=== PATIENT | male | born 1990 | race African-American/Black ===

== ENCOUNTER 2017-06-01 00:04 | Emergency (ER) | payer SELFPAY ==
[~2017-06-01] VITALS: Ht 172.7 cm; Wt 72.6 kg
[~2017-06-01 00:04] MED LIST: AUGMENTIN 875875 MG PO; CATAFLAM50 MG PO; HYDROCODONE BIT1 T11 PO; NORFLEX100 MG PO; PREDNISONE10 MG PO
[2017-06-01 00:45] LABS: BILIRUBIN 1+ (NEGATIVE); BLOOD TRACE-LYSED (NEGATIVE); CLARITY SL CLOUDY (CLEAR); COLOR YELLOW (YELLOW); GLUCOSE NEGATIVE (NEGATIVE); KETONE NEGATIVE (NEGATIVE); LEUKO ESTERASE NEGATIVE (NEGATIVE); NITRITE NEGATIVE (NEGATIVE); PH 5.5 (5.0-9.0); SPECIFIC GRAVITY >= 1.030 (1.005-1.030)
== END 2017-06-01 01:20 | disposition home or self-care (01) ==
LOC: ED 00:04
PROVIDERS: Physician Assistant
DX: N48.89 Other specified disorders of penis (principal); F17.200 Nicotine dependence, unspecified, uncomplicated

== ENCOUNTER 2017-06-05 23:52 | Emergency (ER) | payer SELFPAY ==
[2017-06-06 00:32] LABS: BILIRUBIN NEGATIVE (NEGATIVE); BLOOD NEGATIVE (NEGATIVE); CLARITY SL CLOUDY (CLEAR); COLOR YELLOW (YELLOW); GLUCOSE NEGATIVE (NEGATIVE); KETONE TRACE (NEGATIVE); LEUKO ESTERASE NEGATIVE (NEGATIVE); NITRITE NEGATIVE (NEGATIVE); SPECIFIC GRAVITY >= 1.030 (1.005-1.030)
== END 2017-06-06 00:31 | disposition home or self-care (01) ==
LOC: ED 23:52
PROVIDERS: Nurse Practitioner Family
DX: Z20.2 Contact with and (suspected) exposure to infections with a predominantly sexual mode of transmission (principal); R03.0 Elevated blood-pressure reading, without diagnosis of hypertension; F17.200 Nicotine dependence, unspecified, uncomplicated